=== PATIENT | female | born 1975 | race Caucasian/White ===

== ENCOUNTER 2018-12-14 14:00 | Outpatient (CLI) | payer OTHER | END 2018-12-14 14:30 | disposition home or self-care (01) | LOC: D.MAMMO 14:00 | PROVIDERS: ATTEND Family Medicine | DX: Z12.31 Encounter for screening mammogram for malignant neoplasm of breast (principal) ==

== ENCOUNTER → 2020-04-18 22:57 | Outpatient (CLI) | payer OTHER | END | disposition home or self-care (01) | LOC: D.MAMMO 11:45 | PROVIDERS: ATTEND Emergency Medicine | DX: Z12.31 Encounter for screening mammogram for malignant neoplasm of breast (principal) ==